=== PATIENT | female | born 1935 | race Caucasian/White ===

== ENCOUNTER → 2017-02-23 | Outpatient (CLI) | payer MEDICARE, BC ==
[~2017-02-23] MED LIST: REGADENOSON 0.4 MG/5 ML DISP.SYRIN. IV ONE
--- NOTE | 2017-02-23 12:36 | RAD ---
APPROVED REPORT Test Type: Pharmacological Stress Nurse/Tech: Zaria Glasgow R.N. Test Indications: retaining fluid, SOB Cardiac History: Family history, Hypertension, Ablation for A fib. Medications: See Electronic Medical Record Medical History: See Electronic Medical Record Resting ECG: Afib Resting Heart Rate: 54 bpm Resting Blood Pressure: 113/56mmHg Pretest Chest Pain: No chest pain Nurse/Tech Notes S1S2, lungs sound clear Consent: The procedure was explained to the patient in lay terms. Informed consent was witnessed. Jimenez eout was entered into [employer]. History and Stress Test performed by Zaria Glasgow R.N. Pharm. Details Pharmacologic stress testing was performed using 0.4mg per 5ml of regadenoson given intravenously ove r 7-10 seconds. Stress Symptoms Dyspnea POST EXERCISE Reason for Termination: Infusion complete Max HR: 70 bpm Max Blood Pressure: 127/59mmHg Blood Pressure response to exercise: Normal blood pressure response during stress. Chest Pain: No. Arrhythmia: No. ST Change: No. INTERPRETATION Stress EKG Conclusion: Baseline EKG showed atrial fibrillation with inferolateral ST depressions. Non diagnostic changes at peak stress. Imaging Protocol IMAGE PROTOCOL: Rest Tc-99m/stress Tc-99m 1 day Rest: Stress: Viability: Radiopharm.Tc99m EjdvumtzuLu07y Sestamibi Gzlf46dMe 32mCi Img Date 02/23/2017 02/23/2017 Inj-Img Siss92qrs. 60min. Rest Admin Site:IV - Left AntecubitalAdministrator:RT Leo (R)(N) Stress Admin Site: IV - Left AntecubitalAdministrator: RT Leo (R)(N) STRESS DATA End Diast. Vol.114.0mlAv. Heart Rate52.0bpm End Syst. Vol.44.0mlCO Index BSA0.0L/min Myocardial Ixhx674.0gEject. Hazwtrpn04.0% Stress Rates Pk. Fill Rate3.03EDV/secLVtime Pk. Fill 293.57msec Pk. Empty Rate3.18ESV/secLVtime Pk. Bdjtj181.35msec 1/3 Pk. Fill0.40EDV/sec Stress Scores Regional WT0.00Summed WT0.00 Regional WM0.00Summed WM11.00 Study quality was good. Left Ventricular size was Normal at Rest and Stress. Lung uptake was Normal. Left Ventricular ejection fraction is 61%. LV Perfusion Scintigraphic images showed fixed anterior wall defect, most probably breast attenuation artifact bas ed on normal wall motion. No other fixed or reversible defects were seen. Wall Motion Normal regional wall motion. LV Perf. Quant 17 Seg. SSS0.00 17 Seg. SRS2.00 17 Seg. SDS0.00 Stress Defect Extent (% LAD)0.00Rest Defect Extent (% LAD)5.00Rev. Defect Extent (% LAD)0.00 Stress Defect Extent (% LCX) 0.00Rest Defect Extent (% LCX)0.00Rev. Defect Extent (% LCX)0.00 Stress Defect Extent (% RCA)0.00Rest Defect Extent (% RCA)0.00Rev. Defect Extent (% RCA)0.00 Stress Defect Extent (% ASHLEY)0.00Rest Defect Extent (% ASHLEY)1.70Rev. Defect Extent (% ASHLEY)0.00 Conclusion 1. Regadenoson cardioisotope stress test showed breast attenuation artifact without any evidence of i schemia or infarct. 2. Normal left ventricular systolic function with ejection fraction calculated at 61%. 3. Low risk for cardiac events.
== END | disposition home or self-care (01) ==
LOC: NM 07:50
PROVIDERS: ATTEND Internal Medicine Cardiovascular Disease
DX: I50.32 Chronic diastolic (congestive) heart failure (principal)
CPT/HCPCS: 78452; 93017; 96374; 96375; 96376; A9500; J2785

== ENCOUNTER → 2017-03-14 | Outpatient (CLI) | payer MEDICARE, BC ==
--- NOTE | 2017-03-14 11:27 | RAD ---
Indication chronic diastolic heart failure PA and lateral views of the chest were obtained. No prior imaging of the chest is available. Heart size is slightly enlarged. There are changes compatible with mild congestive heart failure. A consolidated pneumonia is not seen. There is no pleural fluid or pneumothorax. IMPRESSION: Mild enlargement of the cardiac silhouette. Pulmonary findings compatible with moderate congestive heart failure
== END | disposition home or self-care (01) ==
LOC: RAD 10:46
PROVIDERS: ATTEND Internal Medicine Cardiovascular Disease
DX: I50.32 Chronic diastolic (congestive) heart failure (principal); Q24.8 Other specified congenital malformations of heart
CPT/HCPCS: 71020

== ENCOUNTER 2017-04-13 06:32 | Outpatient (CLI) | payer MEDICARE, BC ==
[2017-04-13] VITALS (10 sets, daily range): BP systolic 104–145; BP diastolic 41–56
[~2017-04-13] VITALS: Ht 182.9 cm; Wt 81.6 kg
[2017-04-13] MEDS ORDERED: BISO5TAB2 PO (06:48)
[2017-04-13] MEDS ORDERED: CYAN25008 PO (06:48)
[2017-04-13] MEDS ORDERED: WARF3TAB7 PO (06:48)
[2017-04-13] MEDS ORDERED: DIGO250T PO (06:48)
[2017-04-13] MEDS ORDERED: MAGN400C PO (06:48)
[2017-04-13] MEDS ORDERED: FURO40TA4 PO (06:48)
[2017-04-13] MEDS ORDERED: CHOL10003 PO (06:48)
[2017-04-13] MEDS ORDERED: VITA1CAP PO (06:48)
[2017-04-13] MEDS ORDERED: POTASSIUM CHLO10 MEQ PO (06:48)
[2017-04-13] MEDS ORDERED: WARF6TAB49 PO (06:48)
[2017-04-13] MEDS ORDERED: GARL1CAP PO (06:48)
[2017-04-13] MEDS ORDERED: CA C1TAB62 PO (06:48)
[2017-04-13 07:05] LABS: CALCIUM 8.9 mg/dL (8.5-10.1); CREATININE 1.4 mg/dL (0.6-1.0); GFR 36.1; POTASSIUM 3.2 mmol/L (3.5-5.1)
[2017-04-13 07:20] LABS: HEMATOCRIT 34.9 % (36.0-47.0); HEMOGLOBIN 11.4 g/dL (12.0-15.5); RED BLOOD COUNT 3.9 x10^6/uL (3.50-5.40); RED CELL DISTRIBUTION WIDTH 17.1 % (11.5-14.5); WHITE BLOOD COUNT 6.3 x10^3/uL (4.0-11.0)
[2017-04-13 07:34] LABS: INR 1.4 (0.8-1.1); PROTHROMBIN TIME PATIENT 16.4 SEC (11.7-14.0)
[2017-04-13] MEDS ORDERED: LIDOCAINE 2% 20 ML VIAL. ONE (08:16)
[2017-04-13] MEDS ORDERED: IODIXANOL 320 MG/ML 100 ML VIAL. ONE (08:17)
[2017-04-13] MEDS ORDERED: fentaNYL PF VIAL 250 MCG/5 ML VIAL ONE (08:23)
[2017-04-13] MEDS ORDERED: MIDAZOLAM HCL/PF 5 MG/5 ML VIAL. ONE (08:24)
[2017-04-13] MEDS ORDERED: IV 1/2 NORMAL SALINE 1,000 ML IV SCH (09:06)
--- NOTE | 2017-04-13 09:06 | PDOC ---
MODERATE SEDATION ASSESSMENT RISKS/ALTERNATIVES Risks/Alternatives Risks and alternatives of this type of sedation and procedure discussed with: RISK/ALTERNATIVES: Patient H & P ON CHART H & P H & P on chart and reviewed for co-morbid conditions and appropriate labs. H&P ON CHART: Yes STATUS PREG STATUS ASSESSED: N/A MEDS/ALLERGIES REVIEWED Meds/Allergies Reviewed Medications and Allergies including time and route of recently administered narcotics and sedatives. MEDS/ALLERGIES REVIEWED: Yes ASA RATING ASA RATING: II AIRWAY ASSESSMENT Airway Assessment Airway patency, oral function limitations, presence of caps, crowns, dentures, partials, and ability to extend neck assessed. AIRWAY ASSESSMENT: Yes MALLAMPATI SCORE MALLAMPATI SCORE: II PRE-SEDATION ASSESSMENT PRE-SEDATION ASSESSMENT: Yes MARCIE GONZALEZ MD Apr 13, 2017 09:06
[2017-04-13] MEDS ORDERED: LIDOCAINE 2% 20 ML VIAL. IJ ONE (09:15)
[2017-04-13] MEDS ORDERED: IODIXANOL 320 MG/ML 100 ML VIAL. IART ONE (09:15)
[2017-04-13] MEDS ORDERED: MIDAZOLAM HCL/PF 5 MG/5 ML VIAL. IV ONE (09:15)
[2017-04-13] MEDS ORDERED: fentaNYL PF VIAL 250 MCG/5 ML VIAL IV ONE (09:15)
--- NOTE | 2017-04-13 11:32 | CARD ---
APPROVED REPORT Procedure(s) performed: Right and left heart catheterization, selective coronary angiography and left ventriculography INDICATION The indication(s) include : Unstable angina and persistent dyspnea. PROCEDURE NARRATIVE After the risks, benefits and alternative options, informed consent was obtained from patient. Maninder garcia was brought to the cardiac Reaming Machine Operator and her right groin was prepped and draped in the usual fashion . 20 mL of 2% lidocaine was infiltrated into the skin and subcutaneous tissues for local anesthesia. Arterial and venous accesses were obtained in the right common femoral artery and vein respectively a nd 6 and 8 Bruneian sheaths were inserted. A 7.5 Bruneian [place] catheter was advanced under fluorosco py guidance and intracardiac pressures, oxygen saturations and cardiac output by thermodilution metho d were measured. 6 Bruneian JL4 and 6 Bruneian JR4 catheters were used to perform selective angiography o f the left and right coronary arteries. 6 [place]uneian pigtail catheter was used to perform left ventriculo graphy at the end of procedure. Patient tolerated the procedure well. Hemostasis in the right groin w as achieved using Angio-Seal and manual compression. There were no immediate complications. FINDINGS A. RIGHT HEART CATHETERIZATION: 1. Intracardiac pressures: Mean right atrial pressure 27 mmHg, right ventricular pressure 69/8 mmHg , pulmonary artery pressure 67/17 mmHg, mean pulmonary artery pressure 36 mmHg, primary capillary wed ge pressure 24 mmHg. 2. Oxygen saturations: Right atrium 65.2%, pulmonary artery 69.8%, femoral arterial sheath 96.2%. 3. Cardiac output by thermodilution method 4.55 L/min. B. LEFT HEART CATHETERIZATION: 1. Hemodynamics: Left ventricle end diastolic pressure 23 mmHg. No pullback gradient across the aor tic valve. 2. Left ventriculography: Normal left ventricle systolic function with ejection fraction estimated at 55%. No significant mitral regurgitation seen. 3. Coronary angiography: a. The left main coronary artery arose from the left sinus of Valsalva, gave rise to the left anteri or descending and left circumflex arteries and did not show any significant stenosis. b. The left anterior descending artery did not show any significant stenosis. c. The left circumflex artery did not show any significant stenosis. d. The right coronary artery was a large and dominant vessel arising from the right sinus of Valsalv a that showed 30% stenosis in the midsegment. Conclusion 1. No significant coronary disease 2. Mild to moderate pulmonary hypertension 3. Elevated left ventricle end-diastolic pressure probably from diastolic heart failure. 4. No evidence of intracardiac shunt 5. Normal left vent systolic function with ejection fraction estimated at 55%. Recommendations Medical Therapy
== END 2017-04-13 12:28 | disposition home or self-care (01) ==
LOC: CCL 06:32
PROVIDERS: ATTEND Internal Medicine Cardiovascular Disease
DX: I20.0 Unstable angina (principal); E78.00 Pure hypercholesterolemia, unspecified; I48.91 Unspecified atrial fibrillation; E03.9 Hypothyroidism, unspecified; F32.9 Major depressive disorder, single episode, unspecified; Z87.39 Personal history of other diseases of the musculoskeletal system and connective tissue; Z88.1 Allergy status to other antibiotic agents
CPT/HCPCS: 36415; 80048; 85027; 85610; 85730; 93453; C1769; C1771; C1773; C1887; C1892; J1644; J2001; J2250; J3010; G0269

== ENCOUNTER → 2019-01-06 | Outpatient (CLI) | payer MEDICARE, BC ==
[2017-04-13 11:33] VITALS: BP 119/51
[~2019-01-06] MED LIST changes: +BISO5TAB2 PO; +CA C1TAB62 PO; +CHOL10003 PO; +CYAN25008 PO; +DIGO250T PO; +FURO40TA4 PO; +GARL1CAP PO; +MAGN400C PO; +POTA10TA12 PO; -REGADENOSON 0.4 MG/5 ML DISP.SYRIN. IV ONE; +VITA1CAP PO; +WARF3TAB50 PO; +WARF6TAB49 PO
--- NOTE | 2019-01-06 11:42 | CARD ---
MR#: [id number] Date of Study: 01/06/2019 Ordering Physician: MARCIE GONZALEZ, Referring Physician: MARCIE GONZALEZ Tech: Ana Noyola RDCS APPROVED REPORT EXAM: Two-dimensional and M-mode echocardiogram with Doppler and color Doppler. Other Information Quality : Good INDICATION Congestive Heart Failure 2D DIMENSIONS RVDd3.7 (2.9-3.5cm)Left Atrium(2D)3.9 (1.6-4.0cm) IVSd1.0 (0.7-1.1cm)Aortic Root(2D)3.0 (2.0-3.7cm) LVDd5.1 (3.9-5.9cm)LVOT Diameter2.1 (1.8-2.4cm) PWd0.9 (0.7-1.1cm)LVDs3.4 (2.5-4.0cm) FS (%) 30.0 %SV77.9 ml LVEF(%)60.0 (>50%) Aortic Valve AoV Peak Freddy.120.5cm/sAoV VTI24.2cm AO Peak GR.5.8mmHgLVOT Peak Freddy.96.9cm/s AO Mean GR.4mmHgAVA (VMAX)2.77cm2 JEZ (VTI)2.90cm2 Tricuspid Valve TR P. Mosoobjy016vi/sRAP INEVRUGR0qdKd TR Peak Gr.80snEpGASO47bgNe LEFT VENTRICLE The left ventricle is normal size. There is normal left ventricular wall thickness. Left ventricle sy stolic function is normal. The Ejection Fraction is 50-55%. There is normal LV segmental wall motion. RIGHT VENTRICLE The right ventricle is mildly dilated. Systolic function is mildly reduced. ATRIA The left atrium is mildly dilated. The right atrium is mild to moderately dilated. There is a small P FO noted on Doppler imaging, agitated contrast saline was not performed on this study. AORTIC VALVE The aortic valve is calcified but opens well. Doppler and Color Flow revealed trace aortic regurgitat ion. There is no significant aortic valvular stenosis. MITRAL VALVE The mitral valve is redundant but does not prolapse. The mitral valve is calcified but opens well. Th ere is no mitral valve stenosis. Doppler and Color-flow revealed trace mitral regurgitation. TRICUSPID VALVE The tricuspid valve is normal in structure and function. Doppler and Color Flow revealed mild tricusp id regurgitation. There is mild pulmonary hypertension. The PA pressure was estimated at 37 mmHg. The re is no tricuspid valve stenosis. PULMONIC VALVE The pulmonic valve is not well visualized. Doppler and Color Flow revealed trace pulmonic valvular re gurgitation. There is no pulmonic valvular stenosis. GREAT VESSELS The aortic root is normal in size. The ascending aorta is mildly dilated at 3.6 cm. The IVC is dilate d and collapses >50% with inspiration. PERICARDIAL EFFUSION There is no evidence of significant pericardial effusion. Critical Notification Critical Value: No <Conclusion> Left ventricle systolic function is normal. The Ejection Fraction is 50-55%. There is normal LV segmental wall motion. There is a small PFO noted on Doppler imaging, agitated contrast saline was not performed on this dashawn dy. Trace mitral regurgitation. Mild tricuspid regurgitation. There is mild pulmonary hypertension. The PA pressure was estimated at 37 mmHg. There is no evidence of significant pericardial effusion. Signed by : Marcie Gonzalez, Electronically Approved : 01/06/2019 11:42:02
--- NOTE | 2019-01-06 13:43 | RAD ---
MR#: [id number] Date of Study: 01/06/2019 Ordering Physician: MARCIE GONZALEZ, Referring Physician: MARCIE GONZALEZ, Tech: Amanda Brown RDMS, SOLET, RTR APPROVED REPORT Patient Location : OUT-PATIENT Indications Varicose Veins Skin Changes Venous Insufficiency Perforators Thigh Perforators Calf Perforators Right: cm up from medial heel 29cm back from the anterior border of tibia diameter 5.6mm. Left: cm up from medial heel 18cm back from the anterior border of tibia diameter 5.2mm. Findings 2 thigh and calf perforators are noted. On the right there is a inspector fibrous wallboard approximate 29 cm up from the ankle with a diameter 5.6 mm and a reflux time of 1.2 seconds. There is also a thigh inspector fibrous wallboard n oted measuring approximate 4.2 mm with a reflux time of 2.6 seconds. On the left at approximately 18 7 m up there is a 5.2 mm inspector fibrous wallboard with a reflux time of 1.5 seconds . Per history the bilateral greater saphenous veins were probably ablated. No reflux in the bilateral l krystle saphenous veins. Critical Notification Critical Value: No <Conclusion> 1. Multiple perforators as noted above with reflux. Signed by : Arcenio Meadows, Electronically Approved : 01/06/2019 13:43:38
== END | disposition home or self-care (01) ==
LOC: US 08:54
PROVIDERS: ATTEND Internal Medicine Cardiovascular Disease
DX: I50.32 Chronic diastolic (congestive) heart failure (principal); I87.2 Venous insufficiency (chronic) (peripheral); I83.93 Asymptomatic varicose veins of bilateral lower extremities; I08.2 Rheumatic disorders of both aortic and tricuspid valves; I27.20 Pulmonary hypertension, unspecified
CPT/HCPCS: 93306; 93970

== ENCOUNTER → 2020-02-18 | Outpatient (CLI) | payer MEDICARE, BC ==
[2020-02-02 11:00] VITALS: BP 136/62
[~2020-02-18] MED LIST changes: +ACET325T9 PO; +AMOX1TAB10 PO; -BISO5TAB2 PO; +BISO5TAB8 PO; +BUME1TAB3 PO; -DIGO250T PO; +DIGO250T3 PO; +DOCU-153 PO; +FERR325T72 PO; +LEVO50TA5 PO; +PANT40TA77 PO; +REGADENOSON 0.4 MG/5 ML DISP.SYRIN. IV ONE; +RIVA15TA PO
--- NOTE | 2020-02-18 11:21 | CARD ---
MR#: [id number] Date of Study: 02/18/2020 Ordering Physician: MARCIE GONZALEZ, Referring Physician: MARCIE GONZALEZ Tech: Ana Noyola RDCS APPROVED REPORT EXAM: Two-dimensional and M-mode echocardiogram with Doppler and color Doppler. Other Information Quality : Good Rhythm : Atrial Fibrillation INDICATION Atrial Fibrillation 2D DIMENSIONS RVDd3.8 (2.9-3.5cm)Left Atrium(2D)4.9 (1.6-4.0cm) IVSd0.9 (0.7-1.1cm)Aortic Root(2D)3.1 (2.0-3.7cm) LVDd5.2 (3.9-5.9cm)LVOT Diameter2.1 (1.8-2.4cm) PWd0.9 (0.7-1.1cm)LVDs4.1 (2.5-4.0cm) FS (%) 19.9 %SV51.8 ml LVEF(%)40.5 (>50%) Aortic Valve AoV Peak Freddy.125.6cm/sAoV VTI22.0cm AO Peak GR.6.3mmHgLVOT Peak Freddy.111.8cm/s AO Mean GR.3mmHgAVA (VMAX)3.00cm2 JEZ (VTI)3.88fa9EK P 1/2 Jyaa212qe Tricuspid Valve TR P. Lobywmpc398ow/sRAP PXIHRRDX9tpNz TR Peak Gr.73lfQtEEPV22mpUy Pulmonary Vein S1 Qcrehlac42.6cm/sD2 Pozivmag41.7cm/s LEFT VENTRICLE The left ventricle is normal size. There is normal left ventricular wall thickness. Left ventricle sy stolic function is mildly impaired. The Ejection Fraction is 45%. There is mild global hypokinesis of the left ventricle. RIGHT VENTRICLE The right ventricle is moderately dilated. Systolic function is mildly to moderately reduced. ATRIA The left atrium is moderately dilated. The right atrium is moderately dilated. There is a small PFO n oted on Doppler imaging, agitated contrast saline was not performed on this study. AORTIC VALVE The aortic valve is calcified but opens well. Doppler and Color Flow revealed trace aortic regurgitat ion. There is no significant aortic valvular stenosis. MITRAL VALVE The mitral valve is thickened but opens well. There is no evidence of mitral valve prolapse. There is no mitral valve stenosis. Doppler and Color-flow revealed mild mitral regurgitation. TRICUSPID VALVE The tricuspid valve is normal in structure and function. Doppler and Color Flow revealed mild to mode rate tricuspid regurgitation. There is moderate pulmonary hypertension. The PA pressure was estimated at 47 mmHg. There is no tricuspid valve stenosis. PULMONIC VALVE The pulmonary valve is normal in structure and function. Doppler and Color Flow revealed mild pulmoni c valvular regurgitation. There is no pulmonic valvular stenosis. GREAT VESSELS The aortic root is normal in size. The ascending aorta is moderately dilated at 3.6 cm. The IVC is di lated and collapses >50% with inspiration. PERICARDIAL EFFUSION There is no evidence of significant pericardial effusion. Critical Notification Critical Value: No <Conclusion> Left ventricle systolic function is mildly impaired. The Ejection Fraction is 45%. Moderate biatrial enlargement. There is a small PFO noted on Doppler imaging, agitated contrast saline was not performed on this dashawn dy. This was described in prior echocardiogram. Trace aortic regurgitation. Mild mitral regurgitation. Mild to moderate tricuspid regurgitation. The PA pressure was estimated at 47 mmHg. There is no evidence of significant pericardial effusion. Signed by : Marcie Gonzalez, Electronically Approved : 02/18/2020 11:20:44
--- NOTE | 2020-02-18 13:05 | RAD ---
MR#: [id number] Date of Study: 02/18/2020 Ordering Physician: MARCIE ALVA Referring Physician: MICHAEL WASHBURN Tech: RT Kaitlin Jimenez) (N) APPROVED REPORT Test Type: Pharmacological Stress Nurse/Tech: RT Barbara (Bhavya) (N) Test Indications: ATRIAL FIBRILLATION Cardiac History: ABLATION 2008 Medications: SEE EHR Medical History: ex smoker Resting ECG: atiral fibrillation Resting Heart Rate: 75 bpm Resting Blood Pressure: 118/67mmHg Nurse/Tech Notes Consent: The procedure was explained to the patient in lay terms. Informed consent was witnessed. Jimenez eout was entered into [employer]. History and Stress Test performed by RT Ludy JimenezR) (N) Pharm. Details Pharmacologic stress testing was performed using 0.4mg per 5ml of regadenoson given intravenously ove r 7-10 seconds. POST EXERCISE Reason for Termination: Infusion complete Max HR: 93 bpm Max Blood Pressure: 129/53mmHg INTERPRETATION Stress EKG Conclusion: Baseline EKG showed atrial fibrillation with minor ST depression inferolateral leads. Non diagnostic changes with stress. No other arrhythmias. Imaging Protocol IMAGE PROTOCOL: Rest Tc-99m/stress Tc-99m 1 day Rest: Stress: Viability: Radiopharm.Tc99m MqrcmlcddWc25r Sestamibi Dose10.6mCi 32.6mCi Duration 15min. 10min. Img Date 02/18/2020 02/18/2020 Inj-Img Zime43hrk. 60min. Rest Admin Site:IV - Right AntecubitalAdministrator: RT Barbara (R)(N) Stress Admin Site: IV - Right AntecubitalAdministrator: RT Kaitlin Jimenez)(N) STRESS DATA End Diast. Vol.135.0mlAv. Heart Rate73.0bpm End Syst. Vol.37.0mlCO Index BSA0.0L/min Myocardial Dqbt088.0gEject. Qkgepeot86.0% Stress Rates Pk. Fill Rate3.19EDV/secLVtime Pk. Fill 112.41msec Pk. Empty Rate3.78ESV/secLVtime Pk. Aehjq557.97msec 1/3 Pk. Fill2.04EDV/sec Stress Scores Regional WT0.00Summed WT0.00 Regional WM0.00Summed WM5.00 Study quality was good. Left Ventricular size was Normal at Rest and Stress. Lung uptake was . Left Ventricular ejection fraction is 70%. The rest and stress images show normal perfusion, normal contraction and thickening. LV Perf. Quant 17 Seg. SSS1.00 17 Seg. SRS0.00 17 Seg. SDS1.00 Stress Defect Extent (% LAD)0.00Rest Defect Extent (% LAD)0.00Rev. Defect Extent (% LAD)0.00 Stress Defect Extent (% LCX) 0.00Rest Defect Extent (% LCX)0.00Rev. Defect Extent (% LCX)0.00 Stress Defect Extent (% RCA)0.00Rest Defect Extent (% RCA)0.00Rev. Defect Extent (% RCA)0.00 Stress Defect Extent (% ASHLEY)0.00Rest Defect Extent (% ASHLEY)0.00Rev. Defect Extent (% ASLHEY)0.00 Conclusion 1. Regadenoson cardioisotope stress test did not show any evidence of ischemia or infarct. 2. Normal left ventricular systolic function with ejection fraction calculated at 70%. 3. Low risk for cardiac events. Signed by : Marcie Alva, Electronically Approved : 02/18/2020 13:04:52
== END | disposition home or self-care (01) ==
LOC: NM 09:19
PROVIDERS: ATTEND Internal Medicine Cardiovascular Disease
DX: I08.8 Other rheumatic multiple valve diseases (principal); I48.21 Permanent atrial fibrillation
CPT/HCPCS: 78452; 93017; 93306; A9500; J2785

== ENCOUNTER → 2020-03-05 | Outpatient (CLI) | payer MEDICARE, BC ==
[2020-02-02 11:00] VITALS: BP 136/62
[~2020-03-05] MED LIST changes: -REGADENOSON 0.4 MG/5 ML DISP.SYRIN. IV ONE
--- NOTE | 2020-03-05 14:25 | RAD ---
MR#: [id number] Date of Study: 03/05/2020 Ordering Physician: MARCIE GONZALEZ, Referring Physician: MARCIE GONZALEZ, Tech: Brennan Angelo MBA, RDMS, RVT, RDCS, RTR APPROVED REPORT Bilateral Lower Extremity Venous Study for DVT Patient Location: OUT-PATIENT Indications venosu insufficiency Vein Imaging (Right) CFV (R): Compressible SFJ (R): Compressible FEM (R): Compressible POP (R): Compressible DFV (R): Compressible PTV (R): Spontaneous GSV (R): Spontaneous Peroneals (R): Spontaneous Vein Imaging (Left) CFV (L): Compressible SFJ (L): Compressible FEM (L): Compressible POP (L): Compressible DFV (L): Compressible PTV (L): Spontaneous GSV (L): Spontaneous Peroneals (L): Spontaneous Doppler Evaluation (Right) CFV (R): Spontaneous POP (R):Spontaneous Doppler Evaluation (Left) CFV (L):Spontaneous POP (L):Spontaneous Findings The bilateral lower extremity deep veins were evaluated for thrombus with color Doppler, spectral and grayscale images. On the right the grayscale images of the common femoral, superficial femoral and popliteal veins do n ot demonstrate any evidence of thrombus and these veins appear to be compressible. The below-knee vei ns were not well visualized but grossly appear to be compressible. Spectral imaging and color Doppler do not reveal any evidence of obstruction to flow with normal respirophasic variation above the knee . Below the knee there is spontaneous flow noted. On the left, the grayscale images of the common femoral, superficial femoral and popliteal veins do n ot demonstrate any evidence of thrombus and these veins appear to be compressible. The below-knee vei ns again were not well visualized but grossly appear to be compressible. Spectral imaging and color D oppler do not reveal any evidence of obstruction to flow with normal respirophasic variation above th e knee. The below-knee veins demonstrate spontaneous flow. Critical Notification Critical Value: No <Conclusion> No evidence of DVT in the BLE Signed by : Arcenio Meadows, Electronically Approved : 03/05/2020 14:25:25
== END ==
LOC: US 13:39
PROVIDERS: ATTEND Internal Medicine Cardiovascular Disease
DX: I87.2 Venous insufficiency (chronic) (peripheral) (principal)
CPT/HCPCS: 93970

== ENCOUNTER → 2020-04-16 | Outpatient (CLI) | payer MEDICARE, BC ==
[2020-02-02 11:00] VITALS: BP 136/62
--- NOTE | 2020-04-16 16:37 | KCIC ---
Examination: MRI of the right forefoot without contrast HISTORY: History of ulcer right third digit COMPARISON: None available Technique: Multiplanar, multisequence MR imaging of the right foot were performed without contrast. FINDINGS: The alignment of the metatarsophalangeal joints, interphalangeal grossly appears unremarkable. Limited examination due to significant motion artifact Grossly there is mild decreased T1 signal identified in the distal aspect of the proximal phalanx of the third digit corresponding high T2 signal suspicious for osteomyelitis. There is a small cystic structure identified dorsal and lateral to the head of the first metatarsal, uncertain etiology could be prominent vessel or small cyst. Moderate hallux valgus. Mild degenerative changes MTP joint joints, interphalangeal joints. IMPRESSION: 1. Mild decreased T1 signal identified in the distal aspect of the proximal phalanx of the third digit corresponding high T2 signal , suspicious for osteomyelitis. Limited examination due to motion artifact. Electronically signed by: Chi Cavanaugh MD (04/16/2020 4:33 PM) [id number]
== END | disposition home or self-care (01) ==
LOC: KCIC MRI 15:13
PROVIDERS: ATTEND Podiatrist Foot & Ankle Surgery
DX: M19.071 Primary osteoarthritis, right ankle and foot (principal); M20.11 Hallux valgus (acquired), right foot; L97.519 Non-pressure chronic ulcer of other part of right foot with unspecified severity
CPT/HCPCS: 73718

== ENCOUNTER → 2020-04-20 | Outpatient (CLI) | payer MEDICARE, BC ==
[2020-02-02 11:00] VITALS: BP 136/62
== END | disposition home or self-care (01) ==
LOC: SPEC 09:02
PROVIDERS: ATTEND Podiatrist
DX: I70.235 Atherosclerosis of native arteries of right leg with ulceration of other part of foot (principal)
CPT/HCPCS: 87071; 87075

== ENCOUNTER → 2021-08-29 | Outpatient (CLI) | payer MEDICARE, BC ==
[2020-02-02 11:00] VITALS: BP 136/62
[~2021-08-29] MED LIST changes: +DOCU-148 PO; -DOCU-153 PO
--- NOTE | 2021-08-29 14:12 | CARD ---
MR#: [id number] Date of Study: 08/29/2021 Ordering Physician: MARCIE GONZALEZ, Referring Physician: MARCIE GONZALEZ, Tech: Amanda Lamas [facility] APPROVED REPORT EXAM: Two-dimensional and M-mode echocardiogram with Doppler and color Doppler. Other Information Quality : Average INDICATION Congestive Heart Failure 2D DIMENSIONS RVDd4.8 (2.9-3.5cm)Left Atrium(2D)3.8 (1.6-4.0cm) IVSd1.0 (0.7-1.1cm)Aortic Root(2D)3.1 (2.0-3.7cm) LVDd5.5 (3.9-5.9cm)LVOT Diameter2.0 (1.8-2.4cm) PWd1.0 (0.7-1.1cm)LVDs3.6 (2.5-4.0cm) FS (%) 35.4 %SV94.4 ml LVEF(%)64.2 (>50%) Aortic Valve AoV Peak Freddy.135.5cm/sAoV VTI30.3cm AO Peak GR.7.3mmHgLVOT Peak Freddy.102.1cm/s LVOT VTI 20.33cmAO Mean GR.4mmHg JEZ (VMAX)1.05fa8PUO (VTI)2.14cm2 Mitral Valve MV E Ztympxhd123.3cm/sMV DECEL OXVP238fz MV A Oyfrlrdu82.6cm/sMV E Mean Gr.2mmHg MV OXT51huQ/A Ratio2.5 MVA (PHT)5.12cm2 TDI E/Lateral E'7.1E/Medial E'10.8 Pulmonary Valve PV Peak Kbttrjlh15.0cm/sPV Peak Grad.4mmHg Tricuspid Valve TR P. Mbybvlje965qm/sRAP FDYSWCLA3fdGe TR Peak Gr.10reIzGEIM48acAe LEFT VENTRICLE The left ventricle is normal size. There is normal left ventricular wall thickness. The systolic func tion is mildly impaired. The Ejection Fraction is 40-45%. There is mild global hypokinesis of the lef t ventricle. Tissue Doppler imaging reveals moderate left ventricular diastolic dysfunction. RIGHT VENTRICLE The right ventricle is severely dilated. There is normal right ventricular wall thickness. RV Systoli c function is mildly reduced. ATRIA The left atrium is moderately dilated. The right atrium is moderately dilated. There is a small PFO n oted on Doppler imaging with left to right shunting, agitated contrast saline was not performed on th is study. AORTIC VALVE The aortic valve is mildly thickened. Doppler and Color Flow revealed trace aortic regurgitation. The re is no significant aortic valvular stenosis. Calculated aortic valve area is 2.19 cm2 with maximum pressure gradient of 10 mmHg and mean pressure gradient of 5 mmHg. MITRAL VALVE The mitral valve is thickened but opens well. There is no evidence of mitral valve prolapse. There is no mitral valve stenosis. Doppler and Color-flow revealed trace mitral regurgitation. TRICUSPID VALVE The tricuspid valve is normal in structure and function. Doppler and Color Flow revealed mild tricusp id regurgitation with an estimated PAP of 45 mmHg. There is no tricuspid valve stenosis. PULMONIC VALVE The pulmonic valve is not well visualized. Doppler and Color Flow revealed trace pulmonic valvular re gurgitation. There is no pulmonic valvular stenosis. GREAT VESSELS The aortic root is normal in size. The ascending aorta is mildly dilated measuring 3.4 cm. The IVC is dilated. PERICARDIAL EFFUSION There is no evidence of significant pericardial effusion. Critical Notification Critical Value: No <Conclusion> The systolic function is mildly impaired. The Ejection Fraction is 40-45%. There is mild global hypokinesis of the left ventricle. The right ventricle is severely dilated. RV Systolic function is mildly reduced. There is a small PFO noted on Doppler imaging with left to right shunting, agitated contrast saline w as not performed on this study. Doppler and Color Flow revealed mild tricuspid regurgitation with an estimated PAP of 45 mmHg. Signed by : Arcenio Meadows, Electronically Approved : 08/29/2021 14:11:33
== END ==
LOC: ECHO 09:41
PROVIDERS: ATTEND Internal Medicine Cardiovascular Disease
DX: I36.1 Nonrheumatic tricuspid (valve) insufficiency (principal); I50.32 Chronic diastolic (congestive) heart failure
CPT/HCPCS: 93306

== ENCOUNTER → 2021-08-30 | Outpatient (CLI) | payer MEDICARE, BC ==
[2020-02-02 11:00] VITALS: BP 136/62
[~2021-08-30] MED LIST changes: +REGADENOSON 0.4 MG/5 ML DISP.SYRIN. IV ONE
--- NOTE | 2021-08-30 14:48 | RAD ---
MR#: [id number] Date of Study: 08/30/2021 Ordering Physician: MARCIE GONZALEZ Referring Physician: MICHAEL WASHBURN Tech: RT Leo (R) (N) APPROVED REPORT Test Type: Pharmacological Stress Nurse/Tech: GABBI DOMINGUEZ Test Indications: CHF Cardiac History: CHF, AFIB- SEE EMR Medications: SEE EMR Medical History: SEE EMR Resting ECG: AFIB/BRADYCARDIA Resting Heart Rate: 58 bpm Resting Blood Pressure: 130/63mmHg Pretest Chest Pain: No chest pain Nurse/Tech Notes IRREGULAR RATE, HR 58- AFIB PER MONITOR, DENIES CHEST PAIN OR SOA, VSS. NO COMPLAINTS. Consent: The procedure was explained to the patient in lay terms. Informed consent was witnessed. Jimenez eout was entered into [employer]. History and Stress Test performed by [facility] Details Pharmacologic stress testing was performed using 0.4mg per 5ml of regadenoson given intravenously ove r 7-10 seconds. Stress Symptoms PT DENIED SYMPTOMS THROUGHOUT TESTING. VSS. NO COMPLAINTS. PT TOLERATED WELL. POST EXERCISE Reason for Termination: Infusion complete Max HR: 95 bpm Max Blood Pressure: 128/58mmHg Blood Pressure response to exercise: Normal blood pressure response during stress. Heart Rate response to exercise: WNL Chest Pain: No. Arrhythmia: . AFIB PER MONITOR, NO SIGNIFICANT CHANGES FROM BASELINE EKG NOTED. INTERPRETATION Stress EKG Conclusion: No evidence of stress induced EKG changes. Imaging Protocol IMAGE PROTOCOL: Rest Tc-99m/stress Tc-99m 1 day Rest: Stress: Viability: Radiopharm.Tc99m RilmnwnhuOi03v Sestamibi [id number] 31mCi Duration 15min. 15min. Img Date 08/30/2021 08/30/2021 Inj-Img [id number]. 60min. Rest Admin Site:IV - Left AntecubitalAdministrator:RT Leo (R)(N) Stress Admin Site: IV - Left AntecubitalAdministrator: ALEJANDRO [facility] STRESS DATA End Diast. Vol.115.0mlAv. Heart Rate64.0bpm End Syst. Vol.32.0mlCO Index BSA0.0L/min Myocardial Rozf218.0gEject. Oxbplggi20.0% Stress Rates Pk. Fill Rate4.65EDV/secLVtime Pk. Fill 137.84msec Pk. Empty Rate4.78ESV/secLVtime Pk. Kdpmj708.14msec /3 Pk. Fill2.46EDV/sec Stress Scores Regional WT0.00Summed WT0.00 Regional WM0.00Summed WM2.00 The rest and stress images show normal perfusion, normal contraction and thickening. LV Perf. Quant 17 Seg. SSS0.00 17 Seg. SRS0.00 17 Seg. SDS0.00 Stress Defect Extent (% LAD)0.00Rest Defect Extent (% LAD)0.00Rev. Defect Extent (% LAD)0.00 Stress Defect Extent (% LCX) 0.00Rest Defect Extent (% LCX)0.00Rev. Defect Extent (% LCX)0.00 Stress Defect Extent (% RCA)0.00Rest Defect Extent (% RCA)0.00Rev. Defect Extent (% RCA)0.00 Stress Defect Extent (% ASHLEY)0.00Rest Defect Extent (% ASHLEY)0.00Rev. Defect Extent (% ASHLEY)0.00 Other Information Quality:Average Risk Assessment: Low Risk Conclusion 1. No evidence of EKG changes with stress testing. 2. Normal perfusion at stress/rest. 3. Low risk study. 4. EF > 60%. Signed by : Arcenio Meadows, Electronically Approved : 08/30/2021 14:47:42
== END ==
LOC: NM 10:08
PROVIDERS: ATTEND Internal Medicine Cardiovascular Disease
DX: I50.32 Chronic diastolic (congestive) heart failure (principal)
CPT/HCPCS: 78452; 93017; A9500; J2785

== ENCOUNTER → 2022-01-19 | Outpatient (CLI) | payer MEDICARE, BC ==
[2020-02-02 11:00] VITALS: BP 136/62
[~2022-01-19] MED LIST changes: -REGADENOSON 0.4 MG/5 ML DISP.SYRIN. IV ONE
--- NOTE | 2022-01-20 09:21 | RAD ---
MR#: [id number] Date of Study: 01/19/2022 Ordering Physician: MARCIE ALVA, Referring Physician: MARCIE ALVA, Tech: Brennan Angelo MBA, RDMS, RVT, RDCS, RTR APPROVED REPORT Left Lower Extremity Venous Study for DVT Patient Location: OUT-PATIENT Indications Lower Extremity Pain: Vein Imaging (Left) CFV (L): Compressible SFJ (L): Compressible FEM (L): Compressible POP (L): Compressible DFV (L): Compressible PTV (L): Spontaneous GSV (L): Spontaneous Peroneals (L): Spontaneous Doppler Evaluation (Left) CFV (L):Spontaneous POP (L):Spontaneous Findings Grayscale images of deep veins left lower extremity showed compressible common femoral, deep femoral, superficial femoral and popliteal veins without any evidence of thrombus. Spectral waveform and col or duplex analysis showed normal respirophasic variation without any evidence of obstruction to flow. Below the knee veins showed spontaneous flow. No evidence of deep venous thrombosis. Incidental f inding of fluid on anterolateral aspect of the left knee joint was noted. Critical Notification Critical Value: No <Conclusion> Left lower extremity venous duplex scan did not show any deep venous thrombosis. Signed by : Marcie Alva, Electronically Approved : 01/20/2022 09:21:20
== END ==
LOC: US 10:51
PROVIDERS: ATTEND Internal Medicine Cardiovascular Disease
DX: I82.402 Acute embolism and thrombosis of unspecified deep veins of left lower extremity (principal); M79.605 Pain in left leg
CPT/HCPCS: 93971

== ENCOUNTER → 2022-02-03 | Outpatient (CLI) | payer MEDICARE, BC ==
[2020-02-02 11:00] VITALS: BP 136/62
--- NOTE | 2022-02-03 12:44 | KCIC ---
Examination: MRI of the left knee without contrast HISTORY: History of left knee pain COMPARISON: None available Technique: Multiplanar multisequence MR imaging of the left knee was performed without contrast. FINDINGS: The anterior cruciate ligament, posterior cruciate ligament appears intact. There is blunting with in creased signal identified in the body of the medial meniscus likely tear.The lateral meniscus appears intact. Medial collateral ligament appears intact. The lateral collateral ligamentous complex includ ing the fibular collateral ligament, biceps femoris and popliteus tendon appears appears intact. Small knee joint effusion. The medial, lateral retinaculum appears intact. Mild superficial fraying o f cartilage identified in the medial, lateral, patellofemoral compartments. Partially visualized serpiginous heterogeneous signal identified in the proximal tibia likely enchond bal or bone infarct. Mild joint space loss medial, lateral, patellofemoral compartments IMPRESSION: 1. Tear of the body of the medial meniscus. 2. Small knee joint effusion. 3. Partially visualized serpiginous heterogeneous signal identified in the proximal tibia likely enc hondroma or bone infarct. 4. Grade I chondromalacia medial, lateral, patellofemoral compartments. Electronically signed by: Chi Cavanaugh MD (02/03/2022 12:42 PM) [id number]
== END ==
LOC: KCIC MRI 10:00
PROVIDERS: ATTEND Family Medicine
DX: S83.242A Other tear of medial meniscus, current injury, left knee, initial encounter (principal); M25.462 Effusion, left knee; M94.262 Chondromalacia, left knee; X58.XXXA Exposure to other specified factors, initial encounter; Y93.89 Activity, other specified; Y92.89 Other specified places as the place of occurrence of the external cause; Y99.8 Other external cause status
CPT/HCPCS: 73721